=== PATIENT | male | born 1955 | race Caucasian/White ===

== ENCOUNTER 2018-09-20 07:01 | Day surgery (SDC) | payer BC ==
[2018-09-17 09:24] VITALS: BMI 28.6
[2018-09-20] MEDS ORDERED: PROPOFOL 20 ML ONE ×2 (07:32)
[2018-09-20] MEDS ORDERED: LIDOCAINE HCL/PF 2% SDV 5ML VIAL ONE (07:32)
[2018-09-20 15:10] VITALS: TEMP 98.3
[2018-09-20 15:15] VITALS: BP 113/62; PULSE 57
--- NOTE | 2018-09-22 17:29 | PATH ---
Surgical Pathology Report Patient Name: [facility]. Rec. #: [id number] /Age/Gender: 1955 (Age: 63) / M Account: [id number] Location: [facility] Taken: 09/20/2018 Received: 09/20/2018 Reported: 09/22/2018 Physicians: Zay Barnes M.D. Specimen(s) Received SEGMENTAL COLITIS SIGMOID COLON Clinical History Screening, history of hemorrhoids Postoperative diagnosis: Segmental colitis, diverticulosis Final Diagnosis SIGMOID COLON, SEGMENTAL COLITIS, BIOPSY: COLONIC MUCOSA WITH MILD VASCULAR CONGESTION AND FOCAL EXTRAVASATION OF RED BLOOD CELLS WITHIN LAMINA PROPRIA. NO SIGNIFICANT ARCHITECTURAL DISTORTION IDENTIFIED. NO ACUTE COLITIS IDENTIFIED. Electronically Signed Kaylee Dick M.D. Gross Description Received in formalin, labeled "biopsy segmental colitis sigmoid colon" are 2 alvarenga, irregular portions of soft tissue measuring 0.3 and 0.6 cm. in greatest dimension. The specimens are submitted in toto in one cassette. 09/21/2018 [facility]09/21/2018
== END 2018-09-20 09:15 | disposition home or self-care (01) ==
LOC: FASU-ENDO 07:01
PROVIDERS: ATTEND Internal Medicine Gastroenterology
PROC: 0DBN8ZX Excision of Sigmoid Colon, Via Natural or Artificial Opening Endoscopic, Diagnostic (ICD-10-PCS; principal; 2018-09-20 08:18)
DX: Z12.11 Encounter for screening for malignant neoplasm of colon (principal); K57.30 Diverticulosis of large intestine without perforation or abscess without bleeding; K52.89 Other specified noninfective gastroenteritis and colitis
CPT/HCPCS: 88305-TC

== ENCOUNTER 2023-12-21 06:58 | Day surgery (SDC) | payer BC ==
[2023-12-17 11:38] VITALS: BMI 29.2
[2023-12-21 07:20] VITALS: RESP 18; TEMP 97.2
[2023-12-21] MEDS ORDERED: LIDOCAINE HCL/PF 2% SDV 5ML VIAL ONE (07:40)
[2023-12-21] MEDS ORDERED: PROPOFOL 160 ML ONE (07:40)
[2023-12-21 09:16] VITALS: BP 105/57; PULSE 77
== END 2023-12-21 09:15 | disposition home or self-care (01) ==
LOC: FASU-ENDO 06:58
PROVIDERS: ATTEND Internal Medicine Gastroenterology
PROC: 0DBL8ZX Excision of Transverse Colon, Via Natural or Artificial Opening Endoscopic, Diagnostic (ICD-10-PCS; principal; 2023-12-21 08:15)
DX: Z12.11 Encounter for screening for malignant neoplasm of colon (principal); D12.2 Benign neoplasm of ascending colon; K57.30 Diverticulosis of large intestine without perforation or abscess without bleeding
CPT/HCPCS: 88305-TC